=== PATIENT | male | born 1940 | race Caucasian/White ===

== ENCOUNTER → 2018-06-17 09:41 | Outpatient (CLI) | payer MEDICARE, SELFPAY ==
--- NOTE | 2018-06-17 10:03 | XR_ITS ---
XR ribs RT min 3V w CXR1V Ordering Physician: Barb Smallwood MD Patient Age: 78 years: Male HISTORY: ITS.REASON: TRAUMA chest pain TECHNIQUE: Oblique views right ribs along with frontal view chest. COMPARISON : None available FINDINGS There is subtle fractures at the anterior most aspect of the right ninth and 10th rib. Slight undulation and change in contour evident on the oblique views. Subtle nondisplaced fractures.. These are best seen on the oblique view. . Remaining ribs unremarkable. The upright PA chest included with this series shows no pneumothorax nor pleural effusion There is some mild accentuation markings the right lung base which along with airspace disease at the right base. I suspect this mainly reflects atelectasis secondary to the rib fractures. I cannot exclude minimal infiltrate.; or if severe trauma could not exclude a mild ovary contusion. Clinical correlation required in this regard The left lung is clear. The heart is normal in size with christine and mediastinal structures unremarkable IMPRESSION: Minimal subtle nondisplaced fractures, at anterior ninth and 10th rib ends Minimal airspace disease towards right base I suspect mainly reflecting atelectasis from the above injury, although difficult to exclude a subtle infiltrate... Clinical correlation required
== END ==
PROVIDERS: PCP Emergency Medicine; Visit Provider Emergency Medicine
DX: T14.90XA Injury, unspecified, initial encounter (principal); R07.81 Pleurodynia
CPT/HCPCS: 71101

== ENCOUNTER → 2020-04-26 13:31 | Outpatient (CLI) | payer MEDICARE, SELFPAY ==
[2020-04-26 15:35] LABS: Blood Urea Nitrogen 43 mg/dl (9-20); Estimated Glomerular Filt Rate 25 ml/min (>60); GFR (African American) 30 ML/MIN (>60)
== END ==
PROVIDERS: Visit Provider Family Medicine
DX: Z01.818 Encounter for other preprocedural examination (principal); R10.32 Left lower quadrant pain
CPT/HCPCS: 36415; 82565; 84520

== ENCOUNTER → 2020-04-29 09:03 | Outpatient (CLI) | payer MEDICARE, SELFPAY ==
--- NOTE | 2020-04-29 09:09 | CT_ITS ---
PROCEDURE: CT ABDOMEN PELVIS WO CON CLINICAL INDICATION: LLQ ABD PAIN COMPARISON: No exams were available for comparison TECHNIQUE: Axial images obtained with sagittal and coronal reformats. All CT scans at the facility use one or more dose reduction, viz: automated exposure control, ma/kV adjustment per patient size (including targeted exams where dose is matched to indication, i.e. head), or iterative reconstruction technique. FINDINGS: LOWER THORAX: There are coronary artery calcifications noted. ABDOMEN & PELVIS: Large gallstones are present in the gallbladder. At least 2 stones are noted the largest at 2.9 cm. There are 2 hypodense lesions of the liver 1 in the right hepatic lobe somewhat ill-defined at 1 point 2 x 2 cm and 1 in the left hepatic lobe at 1.8 cm. These could represent small areas of cystic involvement. The spleen, right adrenal gland, and pancreas have an unremarkable appearance. What appears to represent surgical clips are present inferior to the head of the pancreas to the right of superior mesenteric artery. The left adrenal gland is enlarged with an average density of approximately 13 Hounsfield units slightly greater than what expected for an adenoma. There are multiple right renal cysts the largest measuring 6.9 cm. There are nonobstructing bilateral renal calculi at 3 mm in the lower pole on the left and 4 mm in the lower pole on the right. These may be due to vascular calcifications. There is a small right paracentral ventral abdominal wall hernia just superior to the umbilicus. Small umbilical hernia also noted. Both of these hernias contain fat. In the immediate infraumbilical region there is a ventral abdominal wall hernia which contains a loop of small bowel. No evidence of bowel obstruction. No intestinal obstruction or free air. Colonic diverticulosis is noted. There is mild stranding of the fat along the distal descending colon and sigmoid colon. There is a focal thickened diverticulum in the sigmoid region with stranding of the pericolic fat consistent with diverticulitis. Small amount of fluid/phlegmonous change is present in this region. This is directly contiguous with the superior aspect of the urinary bladder. No free air is apparent. The sigmoid colon is thickened distal to this region. 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 IMPRESSION: 1. Diverticulitis of the sigmoid colon. Small amount of fluid is present in the area of diverticulitis. No localized fluid collection/abscess or free air apparent. 2. Thickening of the sigmoid colon distal to the area of diverticulitis. This could in part be due to nondistention or inflammation. Oral contrast has not yet reached this area and IV contrast was not able to be given due to patient's renal status.. Convalescent follow-up suggested. 3. Cholelithiasis 4. Hypodense lesions of the liver which may be due to hepatic cysts and may be confirmed with follow-up. 5. Indeterminate left adrenal nodule. Possibly due to an adenoma. Follow-up may confirm stability. 6. There is a small supra umbilical hernia just to the right of midline and a small umbilical hernia both of these containing fat. An infraumbilical hernia is present containing a loop of small bowel. Dictated by: Bridger Betancourt MD 04/29/2020 09:51 Bridger Betancourt MD in [facility] 04/29/2020 09:51
== END ==
PROVIDERS: PCP Family Medicine; Visit Provider Family Medicine
DX: R10.32 Left lower quadrant pain (principal)
CPT/HCPCS: 74176

== ENCOUNTER → 2020-10-21 10:52 | Outpatient (CLI) | payer MEDICARE, SELFPAY ==
--- NOTE | 2020-10-21 11:05 | ECG_ITS ---
APPROVED REPORT Exam: Resting ECG HR:70 bpm ECG Measurements Heart Rate 70 AXES MN 142 P 62 QRSd 104 QRS -24 QT 408 T 0 QTc 440 Conclusion Normal sinus rhythm with sinus arrhythmia Normal ECG Electronically signed by : Cristian Angulo MD 10/21/2020 18:01:21
== END ==
PROVIDERS: PCP Family Medicine; Visit Provider Family Medicine
DX: I49.9 Cardiac arrhythmia, unspecified (principal)
CPT/HCPCS: 93005

== ENCOUNTER → 2020-11-15 13:44 | Outpatient (CLI) | payer MEDICARE, SELFPAY ==
--- NOTE | 2020-11-15 13:55 | XR_ITS ---
PROCEDURE: XR CHEST PORTABLE CLINICAL HISTORY: COVID TESTING COMPARISON: DX [id number] XR ribs RT min 3V w CXR1V from 06/17/2018 FINDINGS: The cardiomediastinal silhouette and pulmonary vascularity are within normal limits. The lungs are clear without infiltrates, suspicious nodules, or pleural effusions. No acute bony abnormalities. IMPRESSION: No acute findings. Dictated by: Bridger Betancourt MD 11/15/2020 14:28 Bridger Betancourt MD in [facility] 11/15/2020 14:28
[2020-11-15 14:22] LABS: Basophils % 0.3 % (0.1-2.0); Eosinophils # 0.1 K/mm3 (0.0-0.4); Eosinophils % 0.5 % (0.1-12.0); Hematocrit 28.9 % (42.0-52.0); Hemoglobin 8.3 g/dL (14.1-18.0); Lymphocytes # 2.2 K/mm3 (0.7-4.5); Lymphocytes % 21.8 % (10-50); Mean Corpuscular HGB Conc 28.6 g/dL (31.8-35.4); Mean Corpuscular Hemoglobin 22.1 pg (27.0-31.2); Mean Corpuscular Volume 77.3 fl (80-94); Mean Platelet Volume 7.6 fl (7.4-10.4); Monocytes # 0.4 K/mm3 (0.1-1.0); Monocytes % 4.1 % (1.7-9.3); Neutrophils # 7.4 K/mm3 (1.8-7.8); Neutrophils % 73.3 % (37.0-80.0); Platelet Count 296 K/mm3 (142-424); Red Blood Count 3.73 M/mm3 (4.60-6.20); Red Cell Distribution Width 17.6 % (11.5-17.5); White Blood Count 10.1 K/mm3 (4.8-10.8)
== END ==
PROVIDERS: PCP Family Medicine; Visit Provider Family Medicine
DX: Z20.822 Contact with and (suspected) exposure to COVID-19 (principal)
CPT/HCPCS: 36415; 71045; 85025; C9803; U0003; U0005

== ENCOUNTER → 2020-11-23 09:57 | Outpatient (CLI) | payer MEDICARE, SELFPAY | PROVIDERS: Visit Provider Family Medicine | DX: D50.0 Iron deficiency anemia secondary to blood loss (chronic) (principal) | CPT/HCPCS: 36415; 86850 ==

== ENCOUNTER 2020-11-25 06:28 | Outpatient (CLI) | payer MEDICARE, SELFPAY ==
[2020-11-25 06:45] VITALS: BMI 25.8
[2020-11-25 06:58] LABS: Coronavirus 19, PCR Not Detected (NotDetected); Influenza A, PCR Not Detected (NotDetected); Influenza B, PCR Not Detected (NotDetected)
[2020-11-25 06:59] VITALS: BP 131/86; PULSE 66; RESP 20; TEMP 36.4; O2SAT 99
--- NOTE | 2020-11-25 08:02 | P.PN_ITS ---
[facility] Anesthesia Checklist - Patient Identification Patient Identification: Arm Band - Structural Data Admitted From: Home Planned Operative Procedure/s: egd/colonoscopy Consent for Planned Operative Procedure(s) Verified: Yes Verified Documents: Surgical Consent, History and Physical - NPO Status Verified Time NPO: 00:00 - Additional verifications Anesthesia Reactions: No - Airway Assessment C-Spine Mobility Assessed: Yes (mp2) TMJ Mobility Assessed: Yes Dentition: Dentures-good fit - Neurological Assessment Level of Consciousness: Awake, Alert - Anesthesia Plan Anesthesia Risk discussed: Yes Anesthesia Plan: Verified ASA Class: II Anesthesia Type: MAC [facility] History I have reviewed the patient's past medical history: Yes Medical History: Reports:: Cancer (prostate), Hypertension Denies:: Diabetes Mellitus Type 1, Diabetes Mellitus Type 2, Internal Pacemaker, MRSA, Seizures *Have you ever received a pneumonia vaccine?: Yes *Have you received a flu vaccine this season?: Yes Anesthesia experience/problems:: nac Other Surgeries: Yes: Colon Resection, Other. No: Pacemaker Amputation: No Fractures: No - *Social History Last grade of school completed: High school graduate Smoking Status: Current every day smoker Tobacco Type: cigarettes # Packs/Day (cigarettes): 1 Alcohol Intake: never Substance Use Type: denies use *Occupational Status:: retired Housing: house Household Members: spouse *Travel in the last 8 weeks: None Family Hx:: Cancer
--- NOTE | 2020-11-25 08:16 | HMH.PROC ---
[facility] Procedure Note Procedure Note:: Upper Endoscopy Procedure Report: Esophagogastroduodenoscopy with cold biopsies Endoscopost: Zay Rodriguez II, MD Referring Physician: Kelechi King MD Date of Procedure: November 25, 2020 Equipment: Olympus GIF 190 standard upper endoscope Sedation: MAC sedation Indications: Mr. Ott is a 80-year-old gentleman who is here for diagnostic upper endoscopy and colonoscopy secondary to anemia. He does have a hemoglobin of 8.6. He also has had a 20 pound weight loss in the last 8 weeks. He reports no abdominal pain, melena, hematochezia or bright red blood per rectum. He reports no heartburn, reflux, bloating, belching, nausea or dysphagia. He reports no abdominal pain or early satiety. He is not on any anticoagulation. Procedure: Prior to the procedure, a history and physical exam was performed, and patient's medications and allergies were reviewed. The risks, benefits and alternatives of the sedation and procedure were discussed with the patient. All questions were answered and informed consent was obtained. The patient was brought to the procedure room. Patient identification and proposed procedure were verified by the physician and the nurse. The patient was placed in a left lateral decubitus position and the scope was passed under direct vision. Throughout the procedure, the patient's blood pressure, pulse, and oxygen saturations were monitored continuously. The upper GI endoscopy was accomplished without difficulty. The patient tolerated the procedure well. Findings: The scope was passed directly into the upper esophagus and advanced to the third portion of the duodenum. The post bulbar duodenum and duodenal bulb were normal with normal mucosa and conniventes. The scope was withdrawn through a normal duodenal bulb and pylorus into the stomach. There was some gastritis/mucosal erythema with some erosion of the antrum/body of the stomach. Upon retroflexion there was no hiatal hernia. 2 biopsies were taken in the antrum and along the lesser curvature for histology to rule out gastritis and/or H pylori. The scope was then withdrawn into the esophagus. There was no evidence of reflux esophagitis or Wiseman's. There was no esophageal varices. There was a serrated Z-line and biopsies were taken at the GE junction. The remainder of the esophageal mucosa was normal. Impression: 1. Mild erosive gastritis Plan: I will follow-up the biopsies. There was no clear evidence of anemia or acute/chronic gastrointestinal blood loss. I will proceed with diagnostic colonoscopy. The patient is clinically asymptomatic other than weight loss. He has no other digestive symptoms.
--- NOTE | 2020-11-25 08:32 | P.PCN_ITS ---
[facility] Procedure Note Procedure Note:: Colonoscopy Procedure Report: Colonoscopy Endoscopist: Zay Rodriguez II, MD Referring physician: Kelechi King MD Date of Procedure: November 25, 2020 Equipment: Olympus 190 variable stiffness pediatric colonoscope Sedation: MAC sedation Indication: Mr. Ott is a 80-year-old gentleman who is here for diagnostic colonoscopy secondary to anemia and weight loss. He recently presented to the office with a hemoglobin of 8.6. He is hemodynamically stable. He reports no hematochezia or bright red blood per rectum. He has lost 20 pounds in 8 weeks. He reports no abdominal pain, change in his bowel habits or family history of colon cancer. He does have a history of diverticulitis. He did have a former right hemicolectomy/colon surgery. Procedure: Prior to the procedure, a history and physical exam was performed, and patient's medications and allergies were reviewed. The risks, benefits and alternatives of the sedation and procedure were discussed with the patient. All questions were answered and informed consent was obtained. The patient was brought to the procedure room. Patient identification and proposed procedure were verified by the physician and the nurse. The patient was placed in a left lateral decubitus position and the scope was passed under direct vision. Throughout the procedure, the patient's blood pressure, pulse, and oxygen saturations were monitored continuously. The colonoscopy was accomplished without difficulty. The patient tolerated the procedure well. Findings: On digital rectal examination there was normal rectal tone. There were no external hemorrhoids. The colonoscope was introduced through the anal canal to the rectum and advanced to the ileocolonic anastomosis. The scope was advanced a short distance into the ileum. This was normal. The scope was then withdrawn into the colon. There were extensively scattered diverticuli through out the colon but more predominantly in the descending and sigmoid colon (LEFT colon). The rectum itself was normal. Upon retroflexion within the rectum there were grade 2 internal hemorrhoids. The preparation was fair to poor throughout with [place] Preparation Score of 5 out of 9. The cecal time was 10 minutes. Impression: 1. Extensive pandiverticulosis 2. Prior right hemicolectomy with normal anastomosis 3. Grade 2 internal hemorrhoids Plan: There was no source of gastrointestinal blood loss. I will recommend Hemoccult testing. If the patient is strongly Hemoccult positive, I would consider PillCam/video capsule enteroscopy.
[2020-11-25 08:35] VITALS: BP 107/63; PULSE 67; RESP 12; TEMP 36.3; O2SAT 94
[2020-11-25 08:45] VITALS: BP 116/73; PULSE 89; RESP 16; O2SAT 96
[2020-11-25 08:55] VITALS: BP 114/66; PULSE 69; RESP 16; O2SAT 96
[2020-11-25 09:05] VITALS: BP 110/67; PULSE 63; RESP 16; TEMP 36.3; O2SAT 100
[2020-11-25 13:19] VITALS: O2SAT 97
== END 2020-11-25 09:11 | disposition home or self-care (01) ==
LOC: OR 06:31
PROVIDERS: PCP Family Medicine; Visit Provider Internal Medicine Gastroenterology
PROC: 0DJ08ZZ Inspection of Upper Intestinal Tract, Via Natural or Artificial Opening Endoscopic (ICD-10-PCS; CPT 43235; principal; 2020-11-25 08:00)
DX: K29.60 Other gastritis without bleeding (principal); K57.32 Diverticulitis of large intestine without perforation or abscess without bleeding; K64.1 Second degree hemorrhoids; Z90.49 Acquired absence of other specified parts of digestive tract; Z85.46 Personal history of malignant neoplasm of prostate; I10 Essential (primary) hypertension; Z72.0 Tobacco use; Z80.9 Family history of malignant neoplasm, unspecified; Z79.899 Other long term (current) drug therapy
CPT/HCPCS: 43239; 45378; 88305; C9803; U0003; U0005

== ENCOUNTER → 2021-03-05 12:35 | Outpatient (CLI) | payer MEDICARE, SELFPAY ==
--- NOTE | 2021-03-05 12:48 | ECG_ITS ---
APPROVED REPORT Exam: Resting ECG HR:114 bpm ECG Measurements Heart Rate 114 AXES QRSd 100 QRS 17 QT 378 T -8 QTc 521 Conclusion Atrial fibrillation with rapid ventricular response with premature ventricular or aberrantly conducted complexes Incomplete right bundle branch block ST & T wave abnormality Abnormal ECG Electronically signed by : Cristian Angulo MD 03/07/2021 14:31:13
== END ==
PROVIDERS: Visit Provider Family Medicine
DX: I48.91 Unspecified atrial fibrillation (principal)
CPT/HCPCS: 93005

== ENCOUNTER → 2021-03-13 12:16 | Outpatient (CLI) | payer MEDICARE, SELFPAY ==
[2021-03-13 13:16] LABS: Basophils % 0.5 % (0.1-2.0); Eosinophils % 0.1 % (0.1-12.0); Hematocrit 32.1 % (42.0-52.0); Hemoglobin 9.4 g/dL (14.1-18.0); Lymphocytes # 0.9 K/mm3 (0.7-4.5); Lymphocytes % 11.4 % (10-50); Mean Corpuscular HGB Conc 29.2 g/dL (31.8-35.4); Mean Corpuscular Hemoglobin 20.5 pg (27.0-31.2); Mean Corpuscular Volume 70.2 fl (80-94); Mean Platelet Volume 8.8 fl (7.4-10.4); Monocytes # 0.3 K/mm3 (0.1-1.0); Monocytes % 3.5 % (1.7-9.3); Neutrophils # 6.8 K/mm3 (1.8-7.8); Neutrophils % 84.5 % (37.0-80.0); Platelet Count 527 K/mm3 (142-424); Red Blood Count 4.57 M/mm3 (4.60-6.20); Red Cell Distribution Width 20.3 % (11.5-17.5); White Blood Count 8.1 K/mm3 (4.8-10.8)
[2021-03-13 14:24] LABS: Alanine Aminotransferase 76 U/L (12-78); Albumin Level 3.5 g/dl (3.5-5.0); Albumin/Globulin Ratio 0.8 (1.1-1.8); Alkaline Phosphatase 95 U/L (38-126); Anion Gap 19.2 mEq/L (5-15); Aspartate Amino Transferase 228 U/L (17-59); Bilirubin,Total 0.4 mg/dl (0.2-1.3); Blood Urea Nitrogen 56 mg/dl (9-20); Calcium 9.5 mg/dl (8.4-10.2); Carbon Dioxide 19 mmol/L (22.0-30.0); Chloride 108 mmol/L (98-107); Estimated Glomerular Filt Rate 25 ml/min (>60); GFR (African American) 30 ML/MIN (>60); Globulin 4.6 g/dL (1.3-3.2); Glucose 113 mg/dl (74-100); Potassium 5.2 mmoL/L (3.5-5.1); Sodium 141 mmol/L (136-145); Total Protein,Serum 8.1 g/dl (6.3-8.2)
[2021-03-13 15:30] LABS: Vitamin B12 751 pg/mL (239-931)
[2021-03-13 15:32] LABS: Folate 4.79 ng/mL
[2021-03-13 16:55] LABS: Iron 21 ug/dL (49-181)
[2021-03-13 17:30] LABS: Ferritin 27.8 ng/ml (17.9-464)
[2021-03-14 15:06] LABS: Erythropoietin 610.9 mIU/mL (2.6-18.5)
== END ==
PROVIDERS: PCP Family Medicine; Visit Provider Internal Medicine Medical Oncology
DX: D64.9 Anemia, unspecified (principal)
CPT/HCPCS: 36415; 80053; 82607; 82668; 82728; 82746; 83540; 85025